=== PATIENT | male | born 1945 | race Caucasian/White ===

== ENCOUNTER 2022-07-13 19:27 | Inpatient (IN) ==
[2022-07-13] MEDS ORDERED: ONDANSETRON 4 MG/2 ML VIAL IV ONE (19:53)
[2022-07-13] MEDS ORDERED: ACETAMINOPHEN 325 MG TABLET PO ONE (19:53)
[2022-07-13] MEDS ORDERED: SODIUM CHLORIDE 0.9% 1,000 ML IV STA (19:53)
[2022-07-13 20:22] LABS: Basophils % 0.2 % (0.0-0.8); Hematocrit 39.6 VOL% (42.0-52.0); Hemoglobin 13.2 GM/DL (14.0-18.0); Immature Granulocytes % 1.1 %; Immature Granulocytes Absolute 0.26 #; Lymphocytes # 2.4 10*3/uL (1.4-4.0); Lymphocytes % 10.2 % (21.2-54.2); Mean Corpuscular HGB Conc 33.3 GM/DL (32-36); Mean Corpuscular Volume 94.7 FL (87-102); Mean Platelet Volume 9.9 FL (9.6-12.0); Monocytes % 8.4 % (1.7-12.7); Neutrophils % 80.1 % (38.7-73.9); Platelet Count 281 T/CUMM (130-400); Red Blood Count 4.18 MC/CUMM (3.8-5.5); Red Cell Distribution Width 14.2 % (9.3-17.3); White Blood Count 23.53 T/CUMM (4-12)
[2022-07-13 20:37] LABS: INR 1.1; PT Patient Result 12.4 SECS (10.1-12.1)
[2022-07-13 20:41] LABS: Bilirubin,Total 1.6 MG/DL (0.20-1.00); Calcium 8.9 MG/DL (8.5-10.1); Osmolality,Calculated 282.4 MOS/KG (273-304); Potassium 4.2 MMOL/L (3.5-5.1); Total Protein 6.5 G/DL (6.4-8.2)
[2022-07-13] MEDS ORDERED: PIPERACILLIN/TAZOBACTAM 3,375 MG in SODIUM CHLORIDE 0.9% 100 ML IV STA (20:47)
[2022-07-13] MEDS ORDERED: VANCOMYCIN INJ 1,000 MG in SODIUM CHLORIDE 0.9% 250 ML IV STA (20:47)
[2022-07-13 21:25] LABS: Lymphocytes 9 % (20-55); Platelet Estimate Adequate; Total Cells Counted 100
[2022-07-13] MEDS ORDERED: ACETAMINOPHEN 325 MG TABLET PO PRN (21:39)
[2022-07-13] MEDS ORDERED: ONDANSETRON 4 MG/2 ML VIAL IV PRN (21:39)
[2022-07-13] MEDS ORDERED: SODIUM CHLORIDE 0.9% 1,000 ML IV SCH (22:00)
[2022-07-13] MEDS ORDERED: ALBUTEROL/IPRATROPIUM 3 ML NEB RESP TX ONE (23:37)
[2022-07-14] MEDS: ALBUTEROL/IPRATROPIUM 3 ML NEB RESP TX SCH ×4 (00:01→20:39)
[2022-07-14 04:48] LABS: Basophils % 0.1 % (0.0-0.8); Hematocrit 36.8 VOL% (42.0-52.0); Hemoglobin 12.3 GM/DL (14.0-18.0); Immature Granulocytes % 1.2 %; Immature Granulocytes Absolute 0.25 #; Lymphocytes # 1.9 10*3/uL (1.4-4.0); Lymphocytes % 9.2 % (21.2-54.2); Mean Corpuscular HGB Conc 33.4 GM/DL (32-36); Mean Corpuscular Volume 94.6 FL (87-102); Mean Platelet Volume 9.8 FL (9.6-12.0); Monocytes # 1.7 10*3/uL (0.11-0.8); Monocytes % 8.2 % (1.7-12.7); Neutrophils % 81.3 % (38.7-73.9); Platelet Count 205 T/CUMM (130-400); Red Blood Count 3.89 MC/CUMM (3.8-5.5); Red Cell Distribution Width 14.2 % (9.3-17.3); White Blood Count 20.57 T/CUMM (4-12)
[2022-07-14 05:12] LABS: Albumin 2.5 G/DL (3.4-5.0); Bilirubin,Total 1.3 MG/DL (0.20-1.00); Calcium 8.5 MG/DL (8.5-10.1); Osmolality,Calculated 277.7 MOS/KG (273-304); Total Protein 6.2 G/DL (6.4-8.2)
[2022-07-14 05:15] LABS: Eosinophils 1 % (0-10); Lymphocytes 6 % (20-55); Platelet Estimate Adequate; Total Cells Counted 100
[2022-07-14] MEDS: LEVOTHYROXINE 25 MCG TABLET PO SCH (06:14)
[2022-07-14] MEDS: CEFEPIME 1,000 MG in SODIUM CHLORIDE 0.9% 100 ML IV SCH ×3 (08:02→21:19)
[2022-07-14] MEDS: METOCLOPRAMIDE 10 MG TABLET PO SCH ×4 (08:06→21:20)
[2022-07-14] MEDS: ISOSORBIDE MONONITRATE 30 MG TABLET PO SCH (09:25)
[2022-07-14] MEDS: AZITHROMYCIN INJ 500 MG in SODIUM CHLORIDE 0.9% 250 ML IV SCH (09:25)
[2022-07-14] MEDS: PANTOPRAZOLE 40 MG TABLET PO SCH (09:25)
[2022-07-14] MEDS: ASPIRIN EC 81 MG TABLET PO SCH (09:25)
[2022-07-14] MEDS: METOPROLOL TARTRATE 25 MG TABLET PO SCH ×2 (09:25→21:20)
[2022-07-14] MEDS: ATORVASTATIN 40 MG TABLET PO SCH (09:25)
[2022-07-14] MEDS: TAMSULOSIN 0.4 MG CAPSULE PO SCH (09:25)
[2022-07-14] MEDS: amLODIPine 2.5 MG TABLET PO SCH (09:25)
[2022-07-14] MEDS: GABAPENTIN 300 MG CAPSULE PO SCH ×3 (09:25→21:20)
[2022-07-14] MEDS ORDERED: ENOXAPARIN 40 MG/0.4 ML SYRINGE SUBCUT SCH (11:00)
[2022-07-14] MEDS: ALFUZOSIN 10 MG TABLET PO SCH ×2 (11:02→21:20)
[2022-07-14 11:48] LABS: Squamous Epithelial Cell,Urine Occasional /HPF (0-10)
[2022-07-14 11:49] LABS: Bilirubin,Urine Negative (Negative); Blood, Urine Moderate mg/dL (Negative); Glucose,Urine (UA) Negative (Negative); Ketones,Urine Negative (Negative); Nitrite,Urine Negative (Negative); Protein,Urine 30 mg/dL (Negative); Urine Appearance Slightly Cloudy (Clear); Urine Color Yellow (Yellow)
[2022-07-14] MEDS: methylPREDNISolone SOD SUC 40 MG/1 ML VIAL IV SCH ×2 (11:56→23:22)
[2022-07-14] MEDS: ENOXAPARIN 100 MG/ML SYRINGE SUBCUT SCH ×2 (11:57→22:00)
[2022-07-14] MEDS: clonazePAM 0.5 MG TABLET PO SCH ×2 (16:10→21:20)
[2022-07-14] MEDS: BENZONATATE 100 MG CAPSULE PO SCH ×2 (16:10→21:20)
[2022-07-14] MEDS: DICLOFENAC 1% GEL 100 GM TUBE TOP SCH (21:19)
[2022-07-14] MEDS: FLUTICASONE/SALMETEROL 250-50 DISKUS 14 DOSE INH SCH (21:19)
[2022-07-15] MEDS: ALBUTEROL/IPRATROPIUM 3 ML NEB RESP TX SCH ×4 (02:24→19:10)
[2022-07-15] MEDS: CEFEPIME 1,000 MG in SODIUM CHLORIDE 0.9% 100 ML IV SCH ×4 (02:28→20:49)
[2022-07-15 05:42] LABS: Basophils % 0.1 % (0.0-0.8); Hematocrit 35.3 VOL% (42.0-52.0); Hemoglobin 11.6 GM/DL (14.0-18.0); Immature Granulocytes % 1.2 %; Immature Granulocytes Absolute 0.17 #; Lymphocytes # 1.1 10*3/uL (1.4-4.0); Lymphocytes % 7.8 % (21.2-54.2); Mean Corpuscular HGB Conc 32.9 GM/DL (32-36); Mean Corpuscular Volume 94.4 FL (87-102); Mean Platelet Volume 10.2 FL (9.6-12.0); Monocytes # 0.2 10*3/uL (0.11-0.8); Monocytes % 1.2 % (1.7-12.7); Neutrophils % 89.7 % (38.7-73.9); Platelet Count 216 T/CUMM (130-400); Red Blood Count 3.74 MC/CUMM (3.8-5.5); Red Cell Distribution Width 13.9 % (9.3-17.3); White Blood Count 13.76 T/CUMM (4-12)
[2022-07-15 05:56] LABS: PT Patient Result 11.4 SECS (10.1-12.1); Partial Thromboplastin Time 45.1 SECS (23.7-32.9)
[2022-07-15] MEDS: LEVOTHYROXINE 25 MCG TABLET PO SCH (05:56)
[2022-07-15] MEDS ORDERED: BENZONATATE 100 MG CAPSULE PO ONE (07:30)
[2022-07-15] MEDS ORDERED: diphenhydrAMINE 50 MG/1 ML VIAL IM ONE (07:30)
[2022-07-15] MEDS ORDERED: MEPERIDINE 50 MG/1 ML VIAL IM ONE (07:30)
[2022-07-15] MEDS ORDERED: LIDOCAINE 1% 20 ML VIAL MISC INJ ONE (08:00)
[2022-07-15] MEDS ORDERED: LIDOCAINE 2% VISCOUS 100 ML BOTTLE SWISH/SPIT ONE (08:00)
[2022-07-15] MEDS ORDERED: LIDOCAINE 2% 20 ML VIAL RESP TX ONE (08:00)
[2022-07-15] MEDS: ALFUZOSIN 10 MG TABLET PO SCH ×2 (09:31→20:50)
[2022-07-15] MEDS: GABAPENTIN 300 MG CAPSULE PO SCH ×3 (09:32→20:53)
[2022-07-15] MEDS: BENZONATATE 100 MG CAPSULE PO SCH ×3 (09:32→20:53)
[2022-07-15] MEDS: METOCLOPRAMIDE 10 MG TABLET PO SCH ×4 (09:32→21:03)
[2022-07-15] MEDS: TAMSULOSIN 0.4 MG CAPSULE PO SCH (09:32)
[2022-07-15] MEDS: clonazePAM 0.5 MG TABLET PO SCH ×3 (09:32→20:53)
[2022-07-15] MEDS: ATORVASTATIN 40 MG TABLET PO SCH (09:33)
[2022-07-15] MEDS: METOPROLOL TARTRATE 25 MG TABLET PO SCH ×2 (09:33→20:54)
[2022-07-15] MEDS: ISOSORBIDE MONONITRATE 30 MG TABLET PO SCH (09:33)
[2022-07-15] MEDS: PANTOPRAZOLE 40 MG TABLET PO SCH (09:33)
[2022-07-15] MEDS: ASPIRIN EC 81 MG TABLET PO SCH (09:34)
[2022-07-15] MEDS: FLUTICASONE/SALMETEROL 250-50 DISKUS 14 DOSE INH SCH ×2 (09:34→20:55)
[2022-07-15] MEDS: amLODIPine 2.5 MG TABLET PO SCH (09:35)
[2022-07-15] MEDS: DICLOFENAC 1% GEL 100 GM TUBE TOP SCH ×2 (09:35→21:02)
[2022-07-15] MEDS: AZITHROMYCIN INJ 500 MG in SODIUM CHLORIDE 0.9% 250 ML IV SCH (10:18)
[2022-07-15] MEDS: ENOXAPARIN 100 MG/ML SYRINGE SUBCUT SCH (11:39)
[2022-07-15] MEDS: methylPREDNISolone SOD SUC 40 MG/1 ML VIAL IV SCH ×2 (11:39→22:25)
[2022-07-15] MEDS: APIXABAN 5 MG TABLET PO SCH (20:53)
[2022-07-16] MEDS: ALBUTEROL/IPRATROPIUM 3 ML NEB RESP TX SCH ×5 (00:35→23:46)
[2022-07-16] MEDS: CEFEPIME 1,000 MG in SODIUM CHLORIDE 0.9% 100 ML IV SCH ×4 (02:33→20:22)
[2022-07-16 05:35] LABS: Basophils % 0.1 % (0.0-0.8); Hematocrit 33.3 VOL% (42.0-52.0); Hemoglobin 11.1 GM/DL (14.0-18.0); Immature Granulocytes % 1.6 %; Immature Granulocytes Absolute 0.25 #; Lymphocytes # 1.2 10*3/uL (1.4-4.0); Lymphocytes % 7.7 % (21.2-54.2); Mean Corpuscular HGB Conc 33.3 GM/DL (32-36); Mean Corpuscular Volume 94.1 FL (87-102); Mean Platelet Volume 10.3 FL (9.6-12.0); Monocytes # 0.4 10*3/uL (0.11-0.8); Monocytes % 2.8 % (1.7-12.7); Neutrophils % 87.8 % (38.7-73.9); Platelet Count 243 T/CUMM (130-400); Red Blood Count 3.54 MC/CUMM (3.8-5.5); Red Cell Distribution Width 13.9 % (9.3-17.3); White Blood Count 15.55 T/CUMM (4-12)
[2022-07-16] MEDS: LEVOTHYROXINE 25 MCG TABLET PO SCH (05:53)
[2022-07-16 05:55] LABS: Alanine Aminotransferase 14 U/L (16-61); Albumin 2.3 G/DL (3.4-5.0); Alkaline Phosphatase 61 U/L (45-117); Aspartate Amino Transferase 11 U/L (0-37); Bilirubin,Total < 0.39 MG/DL (0.20-1.00); Blood Urea Nitrogen 16 MG/DL (7-18); Calcium 8.6 MG/DL (8.5-10.1); Carbon Dioxide 23 MMOL/L (21-32); Chloride 115 MMOL/L (98-107); Glucose 140 MG/DL (74-106); Osmolality,Calculated 288.8 MOS/KG (273-304); Potassium 3.8 MMOL/L (3.5-5.1); Sodium 144 MMOL/L (136-145)
[2022-07-16] MEDS: GABAPENTIN 300 MG CAPSULE PO SCH ×3 (10:31→20:25)
[2022-07-16] MEDS: ISOSORBIDE MONONITRATE 30 MG TABLET PO SCH (10:32)
[2022-07-16] MEDS: ALFUZOSIN 10 MG TABLET PO SCH ×2 (10:32→20:25)
[2022-07-16] MEDS: ATORVASTATIN 40 MG TABLET PO SCH (10:32)
[2022-07-16] MEDS: ASPIRIN EC 81 MG TABLET PO SCH (10:32)
[2022-07-16] MEDS: TAMSULOSIN 0.4 MG CAPSULE PO SCH (10:32)
[2022-07-16] MEDS: PANTOPRAZOLE 40 MG TABLET PO SCH (10:32)
[2022-07-16] MEDS: METOPROLOL TARTRATE 25 MG TABLET PO SCH ×2 (10:32→20:25)
[2022-07-16] MEDS: BENZONATATE 100 MG CAPSULE PO SCH ×3 (10:33→20:25)
[2022-07-16] MEDS: METOCLOPRAMIDE 10 MG TABLET PO SCH ×4 (10:34→20:25)
[2022-07-16] MEDS: amLODIPine 2.5 MG TABLET PO SCH (10:38)
[2022-07-16] MEDS: DICLOFENAC 1% GEL 100 GM TUBE TOP SCH ×2 (10:38→20:31)
[2022-07-16] MEDS: FLUTICASONE/SALMETEROL 250-50 DISKUS 14 DOSE INH SCH ×2 (11:03→20:28)
[2022-07-16] MEDS: AZITHROMYCIN INJ 500 MG in SODIUM CHLORIDE 0.9% 250 ML IV SCH (11:03)
[2022-07-16] MEDS: methylPREDNISolone SOD SUC 40 MG/1 ML VIAL IV SCH ×2 (11:18→20:23)
[2022-07-16] MEDS: ENOXAPARIN 60 MG/0.6 ML SYRINGE SUBCUT SCH ×2 (11:19→20:28)
[2022-07-16] MEDS: APIXABAN 5 MG TABLET PO SCH (11:38)
[2022-07-16] MEDS: clonazePAM 0.5 MG TABLET PO SCH (11:38)
[2022-07-16] MEDS: levETIRAcetam 500 MG TABLET PO SCH (20:25)
[2022-07-17] MEDS: CEFEPIME 1,000 MG in SODIUM CHLORIDE 0.9% 100 ML IV SCH ×4 (03:04→20:21)
[2022-07-17] MEDS: LEVOTHYROXINE 25 MCG TABLET PO SCH (06:02)
[2022-07-17] MEDS: ALBUTEROL/IPRATROPIUM 3 ML NEB RESP TX SCH ×3 (07:06→19:25)
[2022-07-17] MEDS: methylPREDNISolone SOD SUC 40 MG/1 ML VIAL IV SCH ×2 (08:55→20:22)
[2022-07-17] MEDS: ENOXAPARIN 60 MG/0.6 ML SYRINGE SUBCUT SCH ×2 (09:03→20:23)
[2022-07-17] MEDS: ALFUZOSIN 10 MG TABLET PO SCH ×2 (09:06→20:23)
[2022-07-17] MEDS: GABAPENTIN 300 MG CAPSULE PO SCH ×3 (09:06→20:23)
[2022-07-17] MEDS: ISOSORBIDE MONONITRATE 30 MG TABLET PO SCH (09:06)
[2022-07-17] MEDS: PANTOPRAZOLE 40 MG TABLET PO SCH (09:07)
[2022-07-17] MEDS: METOCLOPRAMIDE 10 MG TABLET PO SCH ×4 (09:08→20:24)
[2022-07-17] MEDS: ATORVASTATIN 40 MG TABLET PO SCH (09:08)
[2022-07-17] MEDS: amLODIPine 2.5 MG TABLET PO SCH (09:08)
[2022-07-17] MEDS: TAMSULOSIN 0.4 MG CAPSULE PO SCH (09:08)
[2022-07-17] MEDS: ASPIRIN EC 81 MG TABLET PO SCH (09:08)
[2022-07-17] MEDS: METOPROLOL TARTRATE 25 MG TABLET PO SCH ×2 (09:09→20:24)
[2022-07-17] MEDS: BENZONATATE 100 MG CAPSULE PO SCH ×3 (09:09→20:24)
[2022-07-17] MEDS: levETIRAcetam 500 MG TABLET PO SCH ×2 (09:09→20:23)
[2022-07-17] MEDS: FLUTICASONE/SALMETEROL 250-50 DISKUS 14 DOSE INH SCH ×2 (09:09→20:25)
[2022-07-17] MEDS: DICLOFENAC 1% GEL 100 GM TUBE TOP SCH ×2 (09:10→20:26)
[2022-07-17] MEDS: AZITHROMYCIN INJ 500 MG in SODIUM CHLORIDE 0.9% 250 ML IV SCH (09:22)
[2022-07-18] MEDS: ALBUTEROL/IPRATROPIUM 3 ML NEB RESP TX SCH ×4 (00:42→19:29)
[2022-07-18] MEDS: CEFEPIME 1,000 MG in SODIUM CHLORIDE 0.9% 100 ML IV SCH ×4 (02:41→20:55)
[2022-07-18] MEDS: LEVOTHYROXINE 25 MCG TABLET PO SCH (05:30)
[2022-07-18] MEDS: amLODIPine 2.5 MG TABLET PO SCH (08:38)
[2022-07-18] MEDS: ALFUZOSIN 10 MG TABLET PO SCH ×2 (08:38→20:58)
[2022-07-18] MEDS: ASPIRIN EC 81 MG TABLET PO SCH (08:38)
[2022-07-18] MEDS: GABAPENTIN 300 MG CAPSULE PO SCH ×3 (08:39→20:57)
[2022-07-18] MEDS: BENZONATATE 100 MG CAPSULE PO SCH ×3 (08:39→20:57)
[2022-07-18] MEDS: METOPROLOL TARTRATE 25 MG TABLET PO SCH ×2 (08:39→20:58)
[2022-07-18] MEDS: TAMSULOSIN 0.4 MG CAPSULE PO SCH (08:39)
[2022-07-18] MEDS: METOCLOPRAMIDE 10 MG TABLET PO SCH ×4 (08:39→20:57)
[2022-07-18] MEDS: ATORVASTATIN 40 MG TABLET PO SCH (08:39)
[2022-07-18] MEDS: ISOSORBIDE MONONITRATE 30 MG TABLET PO SCH (08:39)
[2022-07-18] MEDS: PANTOPRAZOLE 40 MG TABLET PO SCH (08:39)
[2022-07-18] MEDS: levETIRAcetam 500 MG TABLET PO SCH ×2 (08:40→20:57)
[2022-07-18] MEDS: methylPREDNISolone SOD SUC 40 MG/1 ML VIAL IV SCH ×2 (08:40→20:55)
[2022-07-18] MEDS: ENOXAPARIN 60 MG/0.6 ML SYRINGE SUBCUT SCH ×2 (08:41→20:57)
[2022-07-18] MEDS: DICLOFENAC 1% GEL 100 GM TUBE TOP SCH ×2 (08:44→20:58)
[2022-07-18] MEDS: FLUTICASONE/SALMETEROL 250-50 DISKUS 14 DOSE INH SCH ×2 (08:45→20:52)
[2022-07-18] MEDS: AZITHROMYCIN INJ 500 MG in SODIUM CHLORIDE 0.9% 250 ML IV SCH (10:35)
[2022-07-19] MEDS: ALBUTEROL/IPRATROPIUM 3 ML NEB RESP TX SCH ×4 (00:46→20:12)
[2022-07-19] MEDS: CEFEPIME 1,000 MG in SODIUM CHLORIDE 0.9% 100 ML IV SCH ×4 (01:57→22:18)
[2022-07-19 06:09] LABS: Basophils % 0.3 % (0.0-0.8); Immature Granulocytes % 4.9 %; Immature Granulocytes Absolute 0.44 #; Lymphocytes # 1.9 10*3/uL (1.4-4.0); Lymphocytes % 21.7 % (21.2-54.2); Mean Corpuscular HGB Conc 32.4 GM/DL (32-36); Mean Corpuscular Volume 94.4 FL (87-102); Mean Platelet Volume 9.9 FL (9.6-12.0); Monocytes # 0.5 10*3/uL (0.11-0.8); Monocytes % 5.6 % (1.7-12.7); NRBC # 0.04 10*3/uL; Neutrophils % 67.5 % (38.7-73.9); Platelet Count 235 T/CUMM (130-400); White Blood Count 8.95 T/CUMM (4-12)
[2022-07-19 06:21] LABS: PT Patient Result 11.3 SECS (10.1-12.1); Partial Thromboplastin Time 26.5 SECS (23.7-32.9)
[2022-07-19 06:57] LABS: Calcium 8.7 MG/DL (8.5-10.1); Potassium 4.2 MMOL/L (3.5-5.1)
[2022-07-19] MEDS ORDERED: diphenhydrAMINE 50 MG/1 ML VIAL IM ONE (07:30)
[2022-07-19] MEDS ORDERED: BENZONATATE 100 MG CAPSULE PO ONE (07:30)
[2022-07-19] MEDS ORDERED: MEPERIDINE 50 MG/1 ML VIAL IM ONE (07:30)
[2022-07-19] MEDS ORDERED: LIDOCAINE 1% 20 ML VIAL MISC INJ ONE (08:00)
[2022-07-19] MEDS ORDERED: LIDOCAINE 2% 20 ML VIAL RESP TX ONE (08:00)
[2022-07-19] MEDS ORDERED: LIDOCAINE 2% VISCOUS 100 ML BOTTLE SWISH/SPIT ONE (08:00)
[2022-07-19] MEDS: methylPREDNISolone SOD SUC 40 MG/1 ML VIAL IV SCH ×2 (08:41→22:22)
[2022-07-19] MEDS: METOCLOPRAMIDE 10 MG TABLET PO SCH ×4 (08:48→22:20)
[2022-07-19] MEDS: METOPROLOL TARTRATE 25 MG TABLET PO SCH ×2 (12:00→22:20)
[2022-07-19] MEDS: PANTOPRAZOLE 40 MG TABLET PO SCH (12:00)
[2022-07-19] MEDS: ALFUZOSIN 10 MG TABLET PO SCH ×2 (12:00→22:20)
[2022-07-19] MEDS: LEVOTHYROXINE 25 MCG TABLET PO SCH (12:00)
[2022-07-19] MEDS: levETIRAcetam 500 MG TABLET PO SCH ×2 (12:00→22:21)
[2022-07-19] MEDS: amLODIPine 2.5 MG TABLET PO SCH (12:00)
[2022-07-19] MEDS: TAMSULOSIN 0.4 MG CAPSULE PO SCH (12:01)
[2022-07-19] MEDS: BENZONATATE 100 MG CAPSULE PO SCH ×3 (12:01→22:21)
[2022-07-19] MEDS: FLUTICASONE/SALMETEROL 250-50 DISKUS 14 DOSE INH SCH ×2 (12:01→22:23)
[2022-07-19] MEDS: ISOSORBIDE MONONITRATE 30 MG TABLET PO SCH (12:01)
[2022-07-19] MEDS: ASPIRIN EC 81 MG TABLET PO SCH (12:01)
[2022-07-19] MEDS: ATORVASTATIN 40 MG TABLET PO SCH (12:01)
[2022-07-19] MEDS: GABAPENTIN 300 MG CAPSULE PO SCH ×3 (12:02→22:21)
[2022-07-19] MEDS: DICLOFENAC 1% GEL 100 GM TUBE TOP SCH ×2 (12:03→22:23)
[2022-07-19] MEDS: MONTELUKAST 10 MG TABLET PO SCH (16:40)
[2022-07-19] MEDS: ALUMINUM/MAGNES/SIMETH MAX STR 30 ML UDCUP PO SCH (22:21)
[2022-07-19] MEDS: ENOXAPARIN 60 MG/0.6 ML SYRINGE SUBCUT SCH (22:22)
[2022-07-20] MEDS: ALBUTEROL/IPRATROPIUM 3 ML NEB RESP TX SCH ×4 (01:29→19:08)
[2022-07-20] MEDS: CEFEPIME 1,000 MG in SODIUM CHLORIDE 0.9% 100 ML IV SCH ×4 (03:45→22:17)
[2022-07-20] MEDS: LEVOTHYROXINE 25 MCG TABLET PO SCH (05:53)
[2022-07-20] MEDS: methylPREDNISolone SOD SUC 40 MG/1 ML VIAL IV SCH ×2 (08:33→22:17)
[2022-07-20] MEDS: FLUTICASONE/SALMETEROL 250-50 DISKUS 14 DOSE INH SCH ×2 (08:34→22:17)
[2022-07-20] MEDS: DICLOFENAC 1% GEL 100 GM TUBE TOP SCH ×2 (08:34→22:21)
[2022-07-20] MEDS: ENOXAPARIN 60 MG/0.6 ML SYRINGE SUBCUT SCH ×2 (08:37→22:14)
[2022-07-20] MEDS: BENZONATATE 100 MG CAPSULE PO SCH ×3 (08:38→22:15)
[2022-07-20] MEDS: METOPROLOL TARTRATE 25 MG TABLET PO SCH ×2 (08:38→22:15)
[2022-07-20] MEDS: levETIRAcetam 500 MG TABLET PO SCH (08:38)
[2022-07-20] MEDS: GABAPENTIN 300 MG CAPSULE PO SCH ×3 (08:38→22:14)
[2022-07-20] MEDS: ATORVASTATIN 40 MG TABLET PO SCH (08:38)
[2022-07-20] MEDS: ASPIRIN EC 81 MG TABLET PO SCH (08:38)
[2022-07-20] MEDS: TAMSULOSIN 0.4 MG CAPSULE PO SCH (08:38)
[2022-07-20] MEDS: METOCLOPRAMIDE 10 MG TABLET PO SCH ×4 (08:38→22:14)
[2022-07-20] MEDS: ALFUZOSIN 10 MG TABLET PO SCH ×2 (08:39→22:14)
[2022-07-20] MEDS: amLODIPine 2.5 MG TABLET PO SCH (08:39)
[2022-07-20] MEDS: PANTOPRAZOLE 40 MG TABLET PO SCH (08:39)
[2022-07-20] MEDS: ISOSORBIDE MONONITRATE 30 MG TABLET PO SCH (08:39)
[2022-07-20] MEDS: clonazePAM 0.5 MG TABLET PO SCH ×2 (14:15→22:14)
[2022-07-20] MEDS: MONTELUKAST 10 MG TABLET PO SCH (16:07)
[2022-07-20] MEDS: ALUMINUM/MAGNES/SIMETH MAX STR 30 ML UDCUP PO SCH (22:17)
[2022-07-21] MEDS: CEFEPIME 1,000 MG in SODIUM CHLORIDE 0.9% 100 ML IV SCH ×2 (03:19→08:50)
[2022-07-21] MEDS: ALBUTEROL/IPRATROPIUM 3 ML NEB RESP TX SCH ×3 (03:55→12:39)
[2022-07-21] MEDS: LEVOTHYROXINE 25 MCG TABLET PO SCH (05:51)
[2022-07-21] MEDS: FLUTICASONE/SALMETEROL 250-50 DISKUS 14 DOSE INH SCH (08:48)
[2022-07-21] MEDS: DICLOFENAC 1% GEL 100 GM TUBE TOP SCH (08:48)
[2022-07-21] MEDS: methylPREDNISolone SOD SUC 40 MG/1 ML VIAL IV SCH (08:49)
[2022-07-21] MEDS: ALFUZOSIN 10 MG TABLET PO SCH (08:51)
[2022-07-21] MEDS: ISOSORBIDE MONONITRATE 30 MG TABLET PO SCH (08:51)
[2022-07-21] MEDS: ENOXAPARIN 60 MG/0.6 ML SYRINGE SUBCUT SCH (08:51)
[2022-07-21] MEDS: METOCLOPRAMIDE 10 MG TABLET PO SCH ×2 (08:51→11:54)
[2022-07-21] MEDS: BENZONATATE 100 MG CAPSULE PO SCH (08:51)
[2022-07-21] MEDS: PANTOPRAZOLE 40 MG TABLET PO SCH (08:51)
[2022-07-21] MEDS: TAMSULOSIN 0.4 MG CAPSULE PO SCH (08:52)
[2022-07-21] MEDS: METOPROLOL TARTRATE 25 MG TABLET PO SCH (08:52)
[2022-07-21] MEDS: GABAPENTIN 300 MG CAPSULE PO SCH (08:52)
[2022-07-21] MEDS: amLODIPine 2.5 MG TABLET PO SCH (08:52)
[2022-07-21] MEDS: ATORVASTATIN 40 MG TABLET PO SCH (08:52)
[2022-07-21] MEDS: ASPIRIN EC 81 MG TABLET PO SCH (08:52)
[2022-07-21] MEDS: clonazePAM 0.5 MG TABLET PO SCH (08:52)
[2022-07-21 12:19] VITALS: BP 133/76
[2022-07-22 17:41] LABS: M. Tuberculosis PCR Result Negative (Negative); M. Tuberculosis PCR Source BRONCH WASH
== END 2022-07-21 14:05 | disposition home health service (06) | DRG 178 ==
LOC: N.ED 19:27 → SUATTDRO 21:34 → N.EDINP 21:34 → N.2E 07-14 12:39
PROVIDERS: ADMIT Hospitalist; ATTEND Family Medicine